=== PATIENT | female | born 1955 | race Caucasian/White ===

== ENCOUNTER 2020-05-22 11:02 | Outpatient (RCR) | payer MEDICARE, SELFPAY ==
[2020-05-22] MEDS: COVID-19 VACC, MRNA(PFIZER)/PF 30 MCG/0.3 ML SYRINGE IM (09:19)
[2020-06-12] MEDS: COVID-19 VACC, MRNA(PFIZER)/PF 30 MCG/0.3 ML SYRINGE IM (09:01)
== END 2020-05-22 23:59 ==
LOC: IMMUN 11:02
PROVIDERS: Visit Provider Family Medicine
DX: Z23 Encounter for immunization (principal)
CPT/HCPCS: 0001A; 0002A; 91300

== ENCOUNTER 2020-11-26 09:52 | Day surgery (SDC) | payer SELFPAY ==
--- NOTE | 2020-11-23 08:08 | HP.PCM_ITS ---
History and Physical Date of Admission: 11/26/20 Pre-Op History and Physical ? HPI: The patient is a 65 year old female presenting for discussion regarding postmenopausal bleeding and endometrial biopsy results. Patient had seen nurse practitioner Radha Daniels for postmenopausal bleeding that was heavy. Patient had endometrial biopsy which showed disordered proliferative endometrium and endometrial polyp. Patient had pelvic ultrasound which showed endometrial thickness 2.4 cm. Uterine size was 9.2 x 4.8 x 5.8 cm. Patient reports still having spotting today. Patient would like to proceed with hysteroscopy, D&C, polypectomy with the Symphion ? She is scheduled for Hysteroscopy D&C, polypectomy with symphion for pmb, thi ckened endometrium, Endoemtrial polyp on 11/26/20. Procedure discussed along with risks, benefits and complications. Other alternatives discussed for management. Consent form signed? Yes. ? ? PAST MEDICAL HISTORY PAST MEDICAL HISTORY Diagnosis Date ? Anemia 04/29/2009 ? New diagnosis post hospital stay ? Depressive disorder, not elsewhere classified 04/29/2009 ? Treated with paxil ? Elevated BP 04/29/2009 ? Epistaxis 04/29/2009 ? Follows ? Family history of cardiovascular disease 04/29/2009 ? Father sudden at age 47 years. ? Hyperlipidemia 08/04/2009 ? Hypertension 04/29/2009 ? Intestinal disaccharidase deficiencies and disaccharide malabsorption ? ? ? PAST SURGICAL HISTORY PAST SURGICAL HISTORY Procedure Laterality Date ? NASAL CAUTERY ? ? REMOVAL GALLBLADDER ? CURRENT MEDICATIONS Current Outpatient Medications Medication Sig Dispense Refill ? omega-3 fatty acids(FISH OIL 500 MG CAP) Take one(1) capsule daily. (Patient not taking: ) ? 0 ? multivitamins w-minerals/lut(CENTRUM SILVER TAB) Take one(1) tablet daily. (Patient not taking: ) ? 0 ? No current facility-administered medications for this visit. ? ? ALLERGIES: Bactrim [Sulfamethoxazole], Amoxicillin, Codeine, and Sulfa Base [Other] ? PERSONAL HISTORY: SOCIAL HISTORY Social History ? Tobacco Use ? Smoking status: Never Smoker ? Smokeless tobacco: Never Used Substance Use Topics ? Alcohol use: No ? Drug use: No ? FAMILY HISTORY: FAMILY HISTORY FAMILY HISTORY Problem Relation Age of Onset ? Coronary Artery Disease Father ? ? from [place] at 47 ? Hypertension Paternal Grandfather ? ? COPD Mother ? ? PE, COPD Smoker ? Lipids Sister ? ? other (Alcohol Abuse [Other]) Sister ? ? smoker ? other (Alcohol Abuse [Other]) Brother ? ? smoker ? other (Neuroendocrine Tumor Cancer [Other]) Son ? ? ? REVIEW OF SYMPTOMS: negative except as noted above PHYSICAL EXAMINATION: ? VITALS: Blood pressure 148/88, height 5' 5 (1.651 m), weight 228 lb (103.4 kg), last menstrual period 07/01/2010. ? GENERAL: The patient is well nourished, well hydrated in no acute distress. , The patient is oriented to time, place, and person. NECK: full range of motion LUNGS: Clear to auscultation bilaterally. no wheezes, rhonchi or rales HEART: Regular rate and rhythm, Normal heart sounds and No murmurs or gallops NEURO: A&O x 3 ? IMPRESSION: PMB, thickened Endometrium, Endometrial polyp ? PLAN: Hysteroscopy, D&C, polypectomy with symphion ? Pt has been counseled on risks/benefits and alternatives of surgery including but not limited to anesthesia, bleeding, infection, uterine perforation with subsequent injury to pelvic structures including bowel, bladder, ureters and vessels. Pt wishes to proceed with surgery at this time. ? covid vaccinated Pre and Post op instructions reviewed ? ? I have reviewed and updated past medical and surgical history, medications and allergies Sanam Sims MD Office Visit on 11/11/2020 Office Visit on 11/11/2020 Note shared with patient
[2020-11-23 10:26] LABS: Hemoglobin 14.5 g/dL (12.0-15.0); Mean Corp Hgb Conc 31.5 g/dL (32-36); Mean Corpuscular Hgb 25.7 pg (27.0-32.0); Mean Corpuscular Volume 81.4 fL (81-99); Mean Platelet Vol. 9.3 fl (6.2-12.0); Platelet Count 405 K/mm3 (150-450); RBC Distribution Width CV 14.2 % (11.6-14.6); RBC Distribution Width SD 41.9 fl (35.1-43.9); Red Blood Count 5.65 M/mm3 (4.2-5.4); White Blood Count 6.9 K/mm3 (4.4-11.0)
[2020-11-23 10:50] LABS: Anion Gap 6 (5-15); BUN 11 mg/dL (7-18); BUN/Creat Ratio 15.6 RATIO (10-20); Calcium,Total 9.2 mg/dL (8.5-10.1); Chloride 104 mmol/L (98-107); Creatinine, Serum 0.71 mg/dL (0.55-1.02); EST Glomerular Filtration Rate 89 mL/min (>60); Est Glom Filt Rate - Afr Amer 107 mL/min (>60); Glucose 123 mg/dL (74-106); Potassium 3.7 mmol/L (3.5-5.1); Sodium Level 138 mmol/L (136-145)
--- NOTE | 2020-11-23 11:30 | EKG12_ITS ---
Test Reason : PRE OP Blood Pressure : / mmHG Vent. Rate : 087 BPM Atrial Rate : 087 BPM P-R Int : 132 ms QRS Dur : 072 ms QT Int : 358 ms P-R-T Axes : 034 026 060 degrees QTc Int : 430 ms Normal sinus rhythm Nonspecific ST and T wave abnormality Abnormal ECG Confirmed by ERYN CAIN, DREA ([id number]), editor news ANETTE BURK ([id number]) on 11/23/2020 11:33:33 AM Referred By: Sanam Cardenas Confirmed By:DREA CERNA MD
[2020-11-26 10:30] VITALS: BP 188/95; PULSE 93; RESP 16; TEMP 36.5; O2SAT 99; BMI 37.8
[2020-11-26] MEDS: Lactated Ringers 1,000 ML 100 ML IV (10:43)
--- NOTE | 2020-11-26 11:35 | OP.PCM_ITS ---
Problems Associated Problem List Diagnoses (1) Endometrial polyp: (2) Thickened endometrium: (3) PMB (postmenopausal bleeding): Report of Operation Date of Procedure: 11/26/20 Pre-Operative Diagnosis: Thickened endometrium, Endometrial polyp, PMB Post-Operative Diagnosis: same Surgery/Procedure Performed:: Hysteroscopy, D&C, Polypectomy with symphion Description of Surgical Findings:: Multiple polys noted in endometrium. Surgeon: Sanam Cardenas continuous washer operator: MS Girish larson Type of Anesthesia: MAC Specimen's removed: Endometrial curettings, endometrial polyp Drains: none Estimated Blood Loss (mL): <5cc Fluids Replaced: 700 Description of Procedure: Informed consent was obtained the patient was taken the operating room she was placed in supine position. She was given anesthesia. She was then placed in the [facility] where she was prepped and draped in the normal sterile fashion. bladder drained. At this time the weighted speculum was placed in the posterior fornix of vagina. Single-tooth tenaculum was used to gently grasp the anterior lip the cervix. At this time the uterine cavity was sounded to approximately 8 cm. Gentle dilatation was performed once adequate dilatation of the cervix was achieved the hysteroscope using normal saline as a distention medium was placed. Tubal ostia visualized multiple polyps noted. . Symphion resecting device used to obtain endometrial curettings and to perform polypectomy. cavity cleared of tissue- cavity intact. Tissue will be sent to pathology for evaluation. Tenaculum removed. Good hemostasis. Instrument, lap count correct x 2. Vaginal Sweep was negative. Grafts/Implants Used: none Procedure Start Time: 11:25 Procedure Stop Time: 11:34 Complications none Admit VTE Documentation VTE Present on Admission: Yes VTE Mechan Device Prophylaxis: SCD's VTE Pharm Prophylaxis ordered?: No
--- NOTE | 2020-11-26 11:39 | EX.PCM.DISCH ---
Discharge Instructions Procedure D&C Diet Discharge Diet: No restrictions Activity May resume sexual activity in: 1 week Dressing / Incision Call your doctor if you observe: Fever of 101 or Higher, Inability to urinate, Using more than 1 pad per hour and Uncontrolled pain Follow Up Care Please Follow Up With: Sanam Cardenas MD When: 1-2 weeks post OP if you need an appointment please call [phone] Test Results: Test results from this visit will be discussed in further detail at your follow-up appointment, if applicable. Discharge Plan Admission Attending Provider: Sanam Cardenas Primary Care Provider: Care Physician,Jayshree Primary Discharge Orders/Prescriptions Prescriptions: No Action NK RF: 0 Referrals / Follow Up: Care Physician,No Primary [Primary Care Provider] - Disposition Disposition (needs filled in before D/C Order can be placed): Home, Self Care
[2020-11-26 11:46] VITALS: BP 123/80; BP 188/95; PULSE 100; RESP 18; TEMP 36.4; O2SAT 96
[2020-11-26 11:50] VITALS: BP 129/83; BP 188/95; PULSE 95; RESP 18; O2SAT 96
[2020-11-26 11:55] VITALS: BP 142/93; BP 188/95; PULSE 88; RESP 20; O2SAT 97
--- NOTE | 2020-11-26 11:55 | EMB_PTH ---
PATIENT: SNEHAL PAL LOC: [facility] [place] U#:[id number] AGE/SX: 65/F ROOM: RE11/26/[address]: Dr. aSnam Cardenas, MDDOB: 1955 BED: DIS: 11/26/2020 SPEC #: [id number] RECD: 11/26/20 13:56 STATUS: DAVID SIMONEmi #: [id number] KIMBERLY: 11/26/20 11:[address]: Sanam Cardenas DEPT: SURGICAL PATHOLOGY RECD BY: Kirsten Augustine ENTERED: 11/27/20 07:31 SP TYPE: ENDOM BX/C TORSTEN DR: No Primary Care Phys Tissues: Endometrium, NOS Procedures: Surgery Specimen Level IV HEADER OPERATION: Hysteroscopy, D & C Symphion, polypectomy PRE-OP DIAGNOSIS: PMB, thickened endometrium, endometrial polyp TISSUE SUBMITTED: Endometrial curettings and endometrial polyps MICROSCOPIC DIAGNOSIS Endometrium and polyp, curettings: Polypoid fragments of simple hyperplasia without atypia. AM:aissatou 11/30/2020 MICROSCOPIC DESCRIPTION Slides are reviewed. GROSS DESCRIPTION Received in fixative is one container labeled with the patient's name and designated endometrial curettings and endometrial polyp. The specimen consists of multiple irregular fragments of de [place] soft tissue that in aggregate measure 5 x 3 x 0.3 cm. The specimen is totally submitted in two cassettes. / JULIO CÉSAR:aissatou 11/27/20 TC:5 CPT: 02939
--- NOTE | 2020-11-26 11:57 | SUR.PHASEI ---
NASAL AIRWAY REMOVED PATIENT IS AWAKE AND SATING WELL AT 94% ON ROOM AIR.
[2020-11-26 12:00] VITALS: BP 148/88; BP 188/95; PULSE 91; RESP 18; TEMP 35.8; O2SAT 96
[2020-11-26 12:40] VITALS: BP 161/91; BP 188/95; PULSE 73; RESP 16; TEMP 36.6; O2SAT 98
== END 2020-11-26 12:57 | disposition home or self-care (01) ==
LOC: SDC 09:54 → AC 09:55
PROVIDERS: Referring Provider Obstetrics & Gynecology; Visit Provider Obstetrics & Gynecology
PROC: 0UB98ZZ Excision of Uterus, Via Natural or Artificial Opening Endoscopic (ICD-10-PCS; CPT 58558; principal; 2020-11-26 11:40)
DX: N85.01 Benign endometrial hyperplasia (principal); R93.89 Abnormal findings on diagnostic imaging of other specified body structures; N95.0 Postmenopausal bleeding; I10 Essential (primary) hypertension; E78.5 Hyperlipidemia, unspecified
CPT/HCPCS: 00952; 58558; 36415; 80048; 85027; 88305; 93005; J7120; J2405